=== PATIENT | male | born 1930 | race Caucasian/White ===

== ENCOUNTER 2018-09-18 11:03 | Inpatient (IN) | payer OTHER ==
[2018-09-18] MEDS ORDERED: ONDANSETRON 4 MG/2 ML VIAL IVPB ONE (11:42)
[2018-09-18 11:44] VITALS: BMI 24.7
--- NOTE | 2018-09-18 11:48 | PDOC ---
History of Present Illness - General Chief Complaint: Lightheaded Stated Complaint: DIZZINESS Time Seen by Provider: 09/18/18 11:08 History Source: Patient, Spouse Exam Limitations: No Limitations - History of Present Illness Initial Comments: 09/18/18 11:43 CHIEF COMPLAINT: Dizziness and unsteadiness with weakness since this morning HISTORY OF PRESENT ILLNESS: 88-year-old man with a history of coronary bypass, hypertension, atrial fibrillation on Xarelto presents with sudden onset of dizziness which he characterizes as a continuous sensation of weakness. Patient went out to his driveway and slowly went down to the ground. He has a minor superficial abrasion on his right knee, and he denies falling or hitting his head. There was no loss of consciousness. He is having a difficult time describing the dizziness. He said that things feel like they are moving, but not exactly spinning. He states that his vision is a little bit less than usual today, but no double vision or vision loss. Of note, patient has had severe right ear hearing loss over the last 3 weeks. He was seen by ENT and was started on prednisone on Thursday of this week. He has been taking 3 tablets twice a day and is scheduled to begin tapering soon. Patient denies diplopia, speech change, facial numbness, focal numbness or weakness in the extremities, but he does feel generally weak. REVIEW OF SYSTEMS: GENERAL/CONSTITUTIONAL: No fever or chills. Positive weakness. No weight change. HEAD, EYES, EARS, NOSE AND THROAT: Noted some decrease in vision today. No ear pain or discharge. No sore throat. Positive right ear hearing loss for 3 weeks. CARDIOVASCULAR: No chest pain or shortness of breath. RESPIRATORY: Positive chronic cough for 3 weeks with some mild recent improvement. No wheezing, or hemoptysis. GASTROINTESTINAL: Positive nausea, no vomiting, no diarrhea or constipation. No rectal bleeding. GENITOURINARY: No dysuria, frequency, or change in urination. MUSCULOSKELETAL: No joint or muscle swelling or pain. No neck or back pain. Minimal right lateral knee abrasion with no pain. SKIN AND BREASTS: No rash or easy bruising. NEUROLOGIC: No headache, no malik vertigo, no loss of consciousness, no loss of sensation. PSYCHIATRIC: No depression or anxiety. ENDOCRINE: No increased thirst. No abnormal weight change. HEMATOLOGIC/LYMPHATIC: No anemia, easy bleeding, or history of blood clots. ALLERGIC/IMMUNOLOGIC: No hives or skin allergy. No latex allergy. Past History - Past Medical History Allergies/Adverse Reactions: Allergies Allergy/AdvReac Type Severity Reaction Status Date / Time Penicillins Allergy Verified 09/18/18 11:31 Home Medications: Ambulatory Orders FA/Mv,Ca,Iron,Min/Lycopene/Lut [Centrum Tablet] 1 each PO DAILY tablet Amlodipine Besylate [Norvasc -] 10 mg PO DAILY 07/11/13 Doxazosin Mesylate 2 mg PO DAILY 07/11/13 Ezetimibe/Simvastatin [Vytorin 10-10 mg Tablet] 1 each PO HS 07/11/13 Losartan/Hydrochlorothiazide [Losartan-Hctz 100-25 mg Tab] 1 each PO DAILY 07/11 Prednisone 30 mg PO DAILY 09/18/18 Rivaroxaban [Xarelto -] 20 mg PO HS 09/18/18 Anemia: No Asthma: No Cancer: No Cardiac Disorders: Yes (ND, CAD, atrial fibrillation) CVA: No COPD: No CHF: No Dementia: No Diabetes: No GI Disorders: No Disorders: No HTN: Yes Hypercholesterolemia: No Liver Disease: No Seizures: No Thyroid Disease: No - Surgical History Cardiac Surgery: Yes (CABG) - Suicide/Smoking/Psychosocial Hx Smoking History: Never smoked Number of Cigarettes Smoked Daily: 0 Hx Alcohol Use: No Drug/Substance Use Hx: No Hx Substance Use Treatment: No *Physical Exam - Physical Exam Comments: 09/18/18 11:48 GENERAL: The patient is awake, alert, and fully oriented, in no acute distress. He is moderately hard of hearing. HEAD: Normal with no signs of trauma. EYES: Pupils equal, round and reactive to light, extraocular movements intact, sclera anicteric, conjunctiva clear. ENT: Ears normal, nares patent, oropharynx clear without exudates. Moist mucous membranes. Tympanic membranes normal bilaterally. NECK: Normal range of motion, supple without lymphadenopathy, JVD, or masses. No bony cervical spine tenderness. LUNGS: Breath sounds equal, clear to auscultation bilaterally. No wheezes, and no crackles. HEART: Rhythm is slow and irregularly irregular, normal S1 and S2 without murmur , rub or gallop. ABDOMEN: Soft, nontender, normoactive bowel sounds. No guarding, no rebound. No masses. EXTREMITIES: Normal range of motion, no edema. No clubbing or cyanosis. No cords, erythema, or tenderness. Minor superficial abrasion over the right lateral knee. Normal range of motion. No pain. NEURO: Mental status: The patient is oriented x3. Cranial nerves: Cranial nerves II through XII are intact. No facial droop. No facial numbness. Motor: The upper extremities are 5 over 5 in all muscle groups. The lower extremities are 5 over 5 in all muscle groups. Sensation: Sensation is intact to light touch throughout. Cerebellar: Lwhbly-[id number]-tirr is normal in both upper extremities. Heel-knee- marsh is normal in both lower extremities. There is a bilateral tremor. Reflexes: 2+ and symmetric in the upper and lower extremities. Babinski is downgoing bilaterally. Gait: Not tested. PSYCH: Normal mood, normal affect. SKIN: Warm, Dry, normal turgor, no rashes noted. Heart Score/ECG Review - ECG Impressions Comment:: 09/18/18 11:58 Twelve-lead EKG shows atrial fibrillation with a ventricular rate of 57 bpm. The QRS axis is 114 ms with incomplete left bundle-branch block. The axis is normal. There are mild lateral ST depressions in leads V5 and V6 with T-wave flattening in aVL. There is no old tracing for comparison. Impression: Atrial fibrillation with slow ventricular response. Incomplete left bundle branch block. Nonspecific lateral ST depressions. No old tracing for comparison. ED Treatment Course - LABORATORY CBC & Chemistry Diagram: 09/18/18 11:50 09/18/18 11:50 - RADIOLOGY Radiology Studies Ordered: Category Date Time Status HEAD CT WITHOUT CONTRAST [CT] Stat CT Scan 09/18/18 11:42 Ordered CHEST X-RAY PORTABLE* [RAD] Stat Radiology 09/18/18 11:42 Ordered Medical Decision Making - Medical Decision Making 09/18/18 13:23 88-year-old man with history of coronary artery bypass, atrial fibrillation, and hypertension. Patient presents with sudden onset of dizziness today. He is unable to further characterize the dizziness. He was unsteady walking and slowly went down on one knee in his driveway at home. He takes Xarelto for A fib. On examination, his temperature is 94.7. He denies fever or chills. His heart rate is slow, but he reported to me that his heart rate is always in the 50s. His neurological examination shows no focal deficits. Laboratory workup with no leukocytosis. Chemistries with mildly abnormal LFTs, unchanged from baseline. Potassium is low at 3.1. CT scan of the brain shows possible hydrocephalus. No stroke or hemorrhage. Impression: Elderly gentleman with nonspecific dizziness and difficulty walking. Differential diagnosis is broad. EKG with slow A. fib which is chronic, and with incomplete left bundle branch block, as well as lateral ST depressions. Initial troponin is negative and there is no chest pain. Further cardiac enzymes will need to be tested. Weakness may be from hypokalemia. Neuro exam without any focality. CTH without any signs of stroke. Hypothermia could be consistent with thyroid disease or sepsis, although sepsis appears highly unlikely. Lactate and blood cultures will be sent. TSH ordered. Urinalysis ordered. Urine culture ordered. Plan: Patient will be admitted for further evaluation. Admitting team is simply medical, Roxanne boudreaux, Rody Lewis attending. 09/18/18 14:16 *DC/Admit/Observation/Transfer Diagnosis at time of Disposition: Dizziness, Unsteady gait, Weakness - Discharge Dispostion Condition at time of disposition: Guarded Decision to Admit order: Yes - Referrals Referrals: Darrell Lopez MD [Primary Care Provider] - - Patient Instructions - Post Discharge Activity
[2018-09-18] MEDS ORDERED: ONDANSETRON 4 MG/2 ML VIAL ONE (12:16)
[2018-09-18 12:22] LABS: INR 1.37 (0.82-1.09); PROTHROMBIN TIME (PATIENT) 15.2 SEC (10.2-13.0)
[2018-09-18 12:27] LABS: ALBUMIN 3.9 g/dl (3.4-5.0); ALK PHOS 62 U/L (45-117); ANION GAP 11 MMOL/L (8-16); BILIRUBIN,TOTAL 1.5 mg/dl (0.2-1); BLOOD UREA NITROGEN 22 mg/dl (7-18); CALCIUM 9.3 mg/dl (8.5-10); CHLORIDE 99 mmol/L (98-107); CO2 24 mmol/L (21-32); CREATININE 0.6 mg/dl (0.55-1.3); GLUCOSE,RANDOM 143 mg/dl (74-106); POTASSIUM 3.1 mmol/L (3.5-5.1); SGOT/AST 40 U/L (15-37); SGPT/ALT 36 U/L (13-61); SODIUM 134 mmol/L (136-145); TOT PROT 6.9 g/dl (6.4-8.2)
[2018-09-18 12:34] LABS: BASO % 0.1 % (0-2.0); EOS % 0.1 % (0-4.5); HEMATOCRIT 40.8 % (35.4-49); HEMOGLOBIN 13.1 GM/dl (11.7-16.9); MCH 31.8 pg (25.7-33.7); MCHC 32.3 g/dl (32.0-35.9); MEAN CELL VOLUME 98.4 fl (80-96); MEAN PLT VOLUME 10.7 fl (7.5-11.1); MONO % 6.5 % (3.8-10.2); NEUT % 82.3 % (42.8-82.8); PLATELET COUNT 166 K/MM3 (134-434); RBC 4.14 M/mm3 (4.00-5.60); RDW 12.9 % (11.9-15.9); WHITE BLOOD COUNT 10.8 K/mm3 (4.0-10.8)
[2018-09-18] MEDS ORDERED: POTASSIUM CHLORIDE TABS 20 MEQ TABLET.ER (FP) PO ONE ×3 (13:28→17:15)
[2018-09-18] MEDS ORDERED: SODIUM CHLORIDE 1,000 ML IV SCH (13:30)
--- NOTE | 2018-09-18 14:46 | HP ---
CHIEF COMPLAINT: Dizziness, weakness PCP: Dr. Lopez; Dr. Hughes [place] HISTORY OF PRESENT ILLNESS: 88 year-old male with a PMH significant for HTN, CAD s/p CABG x 5v, atrial fibrillation on Xarelto, systolic dysfunction, and recent sudden right hearing loss x 3 weeks. Patient has had a loose cough productive of whitish sputum x 2 weeks. He has had 1-2 diarrheal episodes x 2 days. He slept poorly last night due to coughing. He woke up this morning, ate his usual robust breakfast and went to move his car in the driveway. When he got out of the car he felt dizzy and he fell to the ground. He did not hit his head, no LOC. EMS was activated. As patient was being wheeled on stretcher from driveway to ambulance he vomited. About three weeks ago he had a sudden and profound loss of hearing in his right ear. He went to see ENT Dr. Mccarthy earlier this week who started him on a course of prednisone. Patient denies diplopia, speech change, facial numbness , focal numbness or weakness in the extremities, but he does feel generally weak. He denies chest pain, palpitations, diaphoresis, lower extremity edema. He denies fever, sweats, chills. On Xarelto but denies any type of bleeding episodes, no hematuria, melena, hematochezia, hematemesis. Denies ER course was notable for: (1) T94.6; placed on Lesli hugger, improved to 97.2 (2) RR 26, afib @54bpm (3) K 3.1; Kdur 40meq x 1 Recent Travel: No PAST MEDICAL HISTORY: Hypertension Coronary artery disease Atrial fibrillation Systolic dysfunction Right hearing loss x 3 weeks PAST SURGICAL HISTORY: CABG x 5v Social History: Smoking: never Alcohol: no Drugs: no Family History: Allergies Penicillins Allergy (Verified 09/18/18 11:31) HOME MEDICATIONS: Home Medications Medication Instructions Recorded FA/Mv,Ca,Iron,Min/Lycopene/Lut 1 each PO DAILY tablet 09/24/12 [Centrum Tablet] Amlodipine Besylate [Norvasc -] 10 mg PO DAILY 07/11/13 Doxazosin Mesylate 2 mg PO DAILY 07/11/13 Ezetimibe/Simvastatin [Vytorin 1 each PO HS 07/11/13 10-10 mg Tablet] Losartan/Hydrochlorothiazide 1 each PO DAILY 07/11/13 [Losartan-Hctz 100-25 mg Tab] Prednisone 30 mg PO DAILY 09/18/18 Rivaroxaban [Xarelto -] 20 mg PO HS 09/18/18 REVIEW OF SYSTEMS CONSTITUTIONAL: +weakness Absent: fever, chills, diaphoresis, malaise, loss of appetite, weight change HEENT: Absent: rhinorrhea, nasal congestion, throat pain, throat swelling, difficulty swallowing, mouth swelling, ear pain, eye pain, visual changes CARDIOVASCULAR: Absent: chest pain, syncope, palpitations, irregular heart rate, lightheadedness , peripheral edema RESPIRATORY: +cough, SOB Absent: dyspnea with exertion, orthopnea, wheezing, stridor, hemoptysis GASTROINTESTINAL: +diarrhea Absent: abdominal pain, abdominal distension, nausea, vomiting, constipation, melena, hematochezia GENITOURINARY: Absent: dysuria, frequency, urgency, hesitancy, hematuria, flank pain, genital pain MUSCULOSKELETAL: Absent: myalgia, arthralgia, joint swelling, back pain, neck pain SKIN: Absent: rash, itching, pallor HEMATOLOGIC/IMMUNOLOGIC: Absent: easy bleeding, easy bruising, lymphadenopathy, frequent infections ENDOCRINE: Absent: unexplained weight gain, unexplained weight loss, heat intolerance, cold intolerance NEUROLOGIC: +dizziness Absent: headache, focal weakness or paresthesias, unsteady gait, seizure, mental status changes, bladder or bowel incontinence PSYCHIATRIC: Absent: anxiety, depression, suicidal or homicidal ideation, hallucinations. PHYSICAL EXAMINATION Vital Signs - 24 hr 09/18/18 09/18/18 09/18/18 11:06 11:50 12:45 Temperature 94.6 F L Pulse Rate 63 Pulse Rate [ 54 L 57 L Apical] Respiratory 19 26 H 18 Rate Blood Pressure 166/51 L Blood Pressure 146/90 145/90 [Right Arm] O2 Sat by Pulse 99 100 95 Oximetry (%) 09/18/18 13:45 Temperature 94.7 F L Pulse Rate Pulse Rate [ 68 Apical] Respiratory 26 H Rate Blood Pressure Blood Pressure 148/72 [Right Arm] O2 Sat by Pulse 100 Oximetry (%) GENERAL: Awake, alert, and fully oriented, in no acute distress. HEAD: Normal with no signs of trauma. EYES: Pupils equal, round and reactive to light, extraocular movements intact, sclera anicteric, conjunctiva clear. No lid lag. EARS, NOSE, THROAT: Ears normal, nares patent, oropharynx clear without exudates. Dry mucous membranes. NECK: Normal range of motion, supple without lymphadenopathy, JVD, or masses. LUNGS: Breath sounds equal, clear to auscultation bilaterally. No wheezes, and no crackles. Rapid shallow breathing. HEART: Irregular, S1 and S2 ABDOMEN: Soft, nontender, not distended UPPER EXTREMITIES: 2+ pulses, warm, well-perfused. No cyanosis. No clubbing. No peripheral edema. LOWER EXTREMITIES: 2+ pulses, warm, well-perfused. No calf tenderness. No peripheral edema. NEUROLOGICAL: Cranial nerves II-XII intact. Normal speech. PSYCHIATRIC: Cooperative. Good eye contact. Appropriate mood and affect. Laboratory Results - last 24 hr 09/18/18 09/18/18 09/18/18 11:50 11:50 11:50 WBC 10.8 RBC 4.14 Hgb 13.1 Hct 40.8 MCV 98.4 H MCH 31.8 MCHC 32.3 RDW 12.9 Plt Count 166 MPV 10.7 Absolute Neuts (auto) 8.9 Neutrophils % 82.3 D Lymphocytes % 11.0 D Monocytes % 6.5 Eosinophils % 0.1 D Basophils % 0.1 PT with INR 15.2 H INR 1.37 H PTT (Actin FS) Sodium 134 L Potassium 3.1 L Chloride 99 Carbon Dioxide 24 Anion Gap 11 BUN 22 H Creatinine 0.6 Creat Clearance w eGFR 127.45 Random Glucose 143 H Calcium 9.3 Total Bilirubin 1.5 H AST 40 H ALT 36 Alkaline Phosphatase 62 Troponin I Total Protein 6.9 Albumin 3.9 09/18/18 09/18/18 11:50 11:50 WBC RBC Hgb Hct MCV MCH MCHC RDW Plt Count MPV Absolute Neuts (auto) Neutrophils % Lymphocytes % Monocytes % Eosinophils % Basophils % PT with INR INR PTT (Actin FS) 21.7 L Sodium Potassium Chloride Carbon Dioxide Anion Gap BUN Creatinine Creat Clearance w eGFR Random Glucose Calcium Total Bilirubin AST ALT Alkaline Phosphatase Troponin I < 0.03 Total Protein Albumin ASSESSMENT/PLAN: 88 year-old male with a PMH significant for HTN, CAD s/p CABG x 5v, systolic dysfunction, atrial fibrillation on Xarelto, and recent severe right hearing loss x 3 weeks. Placed on observation for episode of dizziness, hypothermia, Dizziness leading to fall --CT head: moderate to marked ventricular dilitation with the lateral third ventricles, more dilated than the fourth; NPH in differential; no mass lesion or gross infarct --US carotids --neuro consult Acute hearing loss right ear --seen and evaluated by ENT Dr. Mccarthy earlier this week, diagnosis unclear from history given; started on prednisone 30mg BID and taper scheduled to start on 09/19; will start taper --need to reach out to Dr. Mccarthy --neuro consult; possible MRI --tapering steroids Hypothermia Lactic acidosis Tachypnea --temp has normalized --TSH wnl --possible infectious etiology: cough x 2 weeks, diarrhea x several days, CXR clear; no leukocytosis; consider CT chest in am --lactic acidosis: hold lasix, IV fluids, repeat x 6 hours --ABG pending --blood, urine, stool cultures pending --start levofloxacin 750mg daily Systolic dysfunction --Echo from 2013: LV low normal, mild septal wall hypokinesis --appears dry, hold home HCTZ --echo on Thursday --cardiology consult Atrial fibrillation with slow ventricular response --successive ECGs show afib with rate 57-->62bpm; only previous ECG from 2013 showed afib @47bpm --continue amlodipine --on Xarelto --follows with Dr. Barrington Hughes, [facility] Coronary artery disease --continue amlodipine, Lipitor, Zetia Hypertension --continue losartan, amlodipine BPH --continue doxazosin Visit type - Emergency Visit Emergency Visit: Yes ED Registration Date: 09/19/18 Care time: The patient presented to the Emergency Department on the above date and was hospitalized for further evaluation of their emergent condition. - New Patient This patient is new to me today: Yes Date on this admission: 09/20/18 - Critical Care Critical Care patient: No
[2018-09-18] MEDS ORDERED: SODIUM CHLORIDE 500 ML IV STA (17:22)
[2018-09-18 17:37] LABS: AMORP PHOS 2+ /hpf (NONE SEEN)
[2018-09-18 19:19] LABS: ARTERIAL BLD GAS O2 SATURATION 98.8 % (95-98); ARTERIAL BLOOD GAS BASE EXCESS 4.2 meq/l (-2-2); ARTERIAL BLOOD GAS PCO2 27.6 mmHg (35-45); ARTERIAL BLOOD GAS PO2 118 mmHg (80-105); ARTERIAL BLOOD GAS pH 7.57 (7.35-7.45)
[2018-09-18] MEDS: predniSONE 10 MG TABLET (UD) PO SCH (20:13)
[2018-09-18] MEDS: ATORVASTATIN CA 10 MG TABLET (FP) PO SCH (21:24)
[2018-09-18] MEDS: EZETIMIBE 10 MG TABLET (FP) PO SCH (21:24)
[2018-09-18] MEDS: RIVAROXABAN 20 MG TABLET PO SCH (21:24)
--- NOTE | 2018-09-19 08:54 | CON.CARD ---
Consult Consult Specialty:: cardiology Reason for Consultation:: bradycardia; near-syncope - History of Present Illness Chief Complaint: PT A&Ox3; when he walks, he has lately (past two weeks) felt "my equilibrium is off". No palpitations, dizziness, chest pain. History of Present Illness: 88-year-old white man ([place] descent) with a history of coronary bypass 2003 ( denies hx [place]), hypertension, atrial fibrillation on Xarelto, borderline reduced LVEF on 2013 ECHO, presents with sudden onset of dizziness which he characterizes as a continuous sensation of weakness. Patient went out to his driveway and slowly went down to the ground. He has a minor superficial abrasion on his right knee, and he denies falling or hitting his head. There was no loss of consciousness. He is having a difficult time describing the dizziness. He said that things feel like they are moving, but not exactly spinning. He states that his vision is a little bit less than usual today, but no double vision or vision loss. Of note, patient has had severe right ear hearing loss over the last 3 weeks. He was seen by ENT and was started on prednisone on Thursday of this week. He has been taking 3 tablets twice a day and is scheduled to begin tapering soon. - History Source History Provided By: Patient, Family Member ( (by telephone)), Medical Record Limitations to Obtaining History: No Limitations - Past Medical History Cardio/Vascular: Yes: AFIB, CAD, CHF, HTN, Hyperlipdemia. No: [place] - Past Surgical History Past Surgical History: Yes: CABG - Alcohol/Substance Use Hx Alcohol Use: No History of Substance Use: reports: None - Smoking History Smoking history: Never smoked Aproximately how many cigarettes per day: 0 - Social History Usual Living Arrangement: With Spouse History of Recent Travel: No Home Medications - Allergies Allergies/Adverse Reactions: Allergies Allergy/AdvReac Type Severity Reaction Status Date / Time Penicillins Allergy Verified 09/18/18 11:31 - Home Medications Home Medications: Ambulatory Orders FA/Mv,Ca,Iron,Min/Lycopene/Lut [Centrum Tablet] 1 each PO DAILY tablet Amlodipine Besylate [Norvasc -] 10 mg PO DAILY 07/11/13 Doxazosin Mesylate 2 mg PO DAILY 07/11/13 Ezetimibe/Simvastatin [Vytorin 10-10 mg Tablet] 1 each PO HS 07/11/13 Losartan/Hydrochlorothiazide [Losartan-Hctz 100-25 mg Tab] 1 each PO DAILY 07/11 Prednisone 30 mg PO DAILY 09/18/18 Rivaroxaban [Xarelto -] 20 mg PO HS 09/18/18 Family Disease History - Family Disease History Family History: Denies Review of Systems - Review of Systems Constitutional: reports: No Symptoms Eyes: reports: No Symptoms HENT: reports: No Symptoms Neck: reports: No Symptoms Cardiovascular: reports: No Symptoms Respiratory: reports: No Symptoms Gastrointestinal: reports: No Symptoms Genitourinary: reports: No Symptoms Breasts: reports: No Symptoms Reported Musculoskeletal: reports: Muscle Weakness Integumentary: reports: No Symptoms Neurological: reports: Dizziness, Weakness Endocrine: reports: No Symptoms Hematology/Lymphatic: reports: No Symptoms Psychiatric: reports: No Symptoms - Risk Factors Known Risk Factors: Yes: Age, Gender, Hypercholesterolemia, Hypertension, Other (CAD/CABG) Vital Signs: Vital Signs Temperature 97.8 F 09/19/18 06:00 Pulse Rate 54 L 09/19/18 06:00 Respiratory Rate 18 09/19/18 06:00 Blood Pressure 145/65 09/19/18 06:00 O2 Sat by Pulse Oximetry (%) 98 09/19/18 06:00 Constitutional: Yes: Calm Eyes: Yes: WNL HENT: Yes: WNL, Other (hard of hearing) Neck: Yes: WNL Respiratory: Yes: WNL Gastrointestinal: Yes: WNL Renal/: Yes: WNL Cardiovascular: Yes: Pulse Irregular JVD: No Carotid Bruit: No PMI: Non-Displaced Heart Sounds: Yes: S1 (varies in intensity), S2 Murmur: Yes: Systolic Murmur, Grade 1 Musculoskeletal: Yes: Muscle Weakness Extremities: Yes: Cool Edema: No Peripheral Pulses WNL: Yes Integumentary: Yes: WNL Neurological: Yes: Alert, Oriented, Weakness Psychiatric: Yes: WNL - Other Data Labs, Other Data: CBC, BMP 09/18/18 11:50 09/18/18 11:50 INR, PTT INR 1.37 (0.82-1.09) H 09/18/18 11:50 Troponin, BNP 09/18/18 09/18/18 11:50 11:50 Troponin I < 0.03 B-Natriuretic Peptide 996.6 H Troponin, BNP 09/18/18 09/18/18 11:50 11:50 Troponin I < 0.03 B-Natriuretic Peptide 996.6 H Abnormal Lab Results 09/19/18 06:15 RBC 3.71 L Hgb 11.5 L MCV 98.3 H MCHC 31.5 L Plt Count 133 L Neutrophils % 84.7 H Imaging - Results Chest X-ray: Image Reviewed (enlarged heart) EKG: Image Reviewed (AF with slow VR) Other: Image Reviewed (telemetry: AF; HR increases to 80s with exercise ( walking in hallway)) Problem List - Problems (1) Near syncope Assessment/Plan: Orthostatic vital sign checks. Maintain hydration. ECHO for LVEF (low normal, with septal hypokinesis several years ago), chamber sizes, regional wall motion, valve status. Caroid artery US. Pt had been on steroids for right ear problem when the near-syncope occurred. His says he vomited several times shortly after the incident.Noted hypokalemic. Code(s): R55 - SYNCOPE AND COLLAPSE (2) Atrial fibrillation with slow ventricular response Assessment/Plan: HR noted in [id number] overnight. He was asked to walk up and down the hallway (using walker, and with his RN walking with him), and did so for about 5 minutes; HR increaed to high 80s bpm. ECHO several years ago done at this hospital showed low-normal LVEF, septal hypokinesis. Plan: Continue rivaroxaban for anticoagulation. Pt is not on an AV conduction joel, likely due to slow ventricular response. If ECHo shows reduction in LVEF and/or LV dilatation, he will need to be considered for a beta joel, e.g. metoprolol ER or carvedilol. He says that a pacemaker was discussed with him a few years ago, but was not thought necessary at that time. He reports having had an ECHO and other cardiac workup done as outpatient a few weeks ago, and will have results brought in. An ECHO is also scheduled for tomorrow here. Addendum: pt's family brought papers of recent labs today; no ECHO or stress test results were among them. Code(s): I48.91 - UNSPECIFIED ATRIAL FIBRILLATION (3) HTN (hypertension) Code(s): I10 - ESSENTIAL (PRIMARY) HYPERTENSION (4) Hyperlipidemia Assessment/Plan: on statin and Zetia. Code(s): E78.5 - HYPERLIPIDEMIA, UNSPECIFIED (5) Dizziness Code(s): R42 - DIZZINESS AND GIDDINESS (6) Hypokalemia Assessment/Plan: replete K+, and keep 4.0-4.5. Code(s): E87.6 - HYPOKALEMIA (7) BPH (benign prostatic hyperplasia) Assessment/Plan: On Cardura Code(s): N40.0 - BENIGN PROSTATIC HYPERPLASIA WITHOUT LOWER URINRY TRACT SYMP
[2018-09-19 09:19] LABS: BASO % 0.1 % (0-2.0); HEMATOCRIT 36.5 % (35.4-49); HEMOGLOBIN 11.5 GM/dl (11.7-16.9); LYMPH % 8.3 % (8-40); MCH 30.9 pg (25.7-33.7); MCHC 31.5 g/dl (32.0-35.9); MEAN CELL VOLUME 98.3 fl (80-96); MEAN PLT VOLUME 10.9 fl (7.5-11.1); MONO % 6.9 % (3.8-10.2); NEUT % 84.7 % (42.8-82.8); PLATELET COUNT 133 K/MM3 (134-434); RBC 3.71 M/mm3 (4.00-5.60); RDW 12.7 % (11.9-15.9); WHITE BLOOD COUNT 10.1 K/mm3 (4.0-10.8)
[2018-09-19 09:22] LABS: ANION GAP 8 MMOL/L (8-16); BLOOD UREA NITROGEN 17 mg/dl (7-18); CALCIUM 8.6 mg/dl (8.5-10); CHLORIDE 102 mmol/L (98-107); CO2 26 mmol/L (21-32); CREATININE 0.6 mg/dl (0.55-1.3); GLUCOSE,RANDOM 104 mg/dl (74-106); MAGNESIUM 1.9 mg/dL (1.8-2.4); PHOSPHOROUS 2.9 mg/dl (2.5-4.9); POTASSIUM 3.9 mmol/L (3.5-5.1); SODIUM 136 mmol/L (136-145)
[2018-09-19] MEDS ORDERED: predniSONE 10 MG TABLET (UD) PO SCH (10:00)
[2018-09-19] MEDS ORDERED: PATIENT'S OWN MEDICATION (NON-FORMULARY) (Losartan/Hydrochlorothiazide [Losartan-Hctz 100- PO SCH (10:00)
[2018-09-19] MEDS ORDERED: LOSARTAN 50MG/HCTZ 12.5MG 1 TAB (FP) PO SCH (10:00)
[2018-09-19] MEDS: LOSARTAN POTASSIUM 50 MG TABLET (FP) PO SCH (10:22)
[2018-09-19] MEDS: DOXAZOSIN MESYLATE 2 MG TABLET (FP) PO SCH (10:22)
[2018-09-19] MEDS: predniSONE 10 MG TABLET (UD) PO SCH ×2 (10:23→21:11)
[2018-09-19] MEDS: amLODIPine BESYLATE 10 MG TABLET (FP) PO SCH (10:26)
--- NOTE | 2018-09-19 10:56 | PN ---
Physical Exam: SUBJECTIVE: Patient seen and examined, pt has mild tremors in hands which patient and reports is not new, denies dizziness, headache family at bedside, requesting results, consulting Jay to speak to sonPhil OBJECTIVE: Vital Signs Period Temp Pulse Resp BP Sys/Lockhart Pulse Ox Last 24 Hr 94.6 F-98.3 F 45-68 16-26 133-166/49-90 95-100 GENERAL: The patient is awake, alert, and fully oriented, in no acute distress. HEAD: Normal with no signs of trauma. EYES: PERRL, extraocular movements intact, sclera anicteric, conjunctiva clear. No ptosis. ENT: Ears normal, nares patent, oropharynx clear without exudates, moist mucous membranes. NECK: Trachea midline, full range of motion, supple. LUNGS: Breath sounds equal, clear to auscultation bilaterally, no wheezes, no crackles, no accessory muscle use. HEART: Regular rate and rhythm, S1, S2 without murmur, rub or gallop. ABDOMEN: Soft, nontender, nondistended, normoactive bowel sounds, no guarding, no rebound, no hepatosplenomegaly, no masses. EXTREMITIES: 2+ pulses, warm, well-perfused, no edema. NEUROLOGICAL: Cranial nerves II through XII grossly intact. Normal speech, gait not observed. PSYCH: Normal mood, normal affect. SKIN: Warm, dry, normal turgor, no rashes or lesions noted Laboratory Results - last 24 hr 09/18/18 09/18/18 09/18/18 11:50 11:50 11:50 WBC 10.8 RBC 4.14 Hgb 13.1 Hct 40.8 MCV 98.4 H MCH 31.8 MCHC 32.3 RDW 12.9 Plt Count 166 MPV 10.7 Absolute Neuts (auto) 8.9 Neutrophils % 82.3 D Lymphocytes % 11.0 D Monocytes % 6.5 Eosinophils % 0.1 D Basophils % 0.1 PT with INR 15.2 H INR 1.37 H PTT (Actin FS) Anticoagulation Therapy Puncture Site ABG pH ABG pCO2 at Pt Temp ABG pO2 at Pt Temp ABG HCO3 ABG O2 Sat (Measured) ABG O2 Content ABG Base Excess Bhavik Test O2 Delivery Device Oxygen Flow Rate Vent Mode Vent Rate Mechanical Rate Pressure Support Vent Sodium 134 L Potassium 3.1 L Chloride 99 Carbon Dioxide 24 Anion Gap 11 BUN 22 H Creatinine 0.6 Creat Clearance w eGFR 127.45 Random Glucose 143 H Lactic Acid Calcium 9.3 Phosphorus Magnesium Total Bilirubin 1.5 H AST 40 H ALT 36 Alkaline Phosphatase 62 Troponin I B-Natriuretic Peptide Total Protein 6.9 Albumin 3.9 TSH Urine Color Urine Appearance Urine pH Urine Protein Urine Glucose (UA) Urine Ketones Urine Blood Urine Nitrite Urine Bilirubin Urine Urobilinogen Ur Leukocyte Esterase Urine RBC Urine WBC Amorphous Phosphates 09/18/18 09/18/18 09/18/18 11:50 11:50 11:50 WBC RBC Hgb Hct MCV MCH MCHC RDW Plt Count MPV Absolute Neuts (auto) Neutrophils % Lymphocytes % Monocytes % Eosinophils % Basophils % PT with INR INR PTT (Actin FS) 21.7 L Anticoagulation Therapy Puncture Site ABG pH ABG pCO2 at Pt Temp ABG pO2 at Pt Temp ABG HCO3 ABG O2 Sat (Measured) ABG O2 Content ABG Base Excess Bhavik Test O2 Delivery Device Oxygen Flow Rate Vent Mode Vent Rate Mechanical Rate Pressure Support Vent Sodium Potassium Chloride Carbon Dioxide Anion Gap BUN Creatinine Creat Clearance w eGFR Random Glucose Lactic Acid Calcium Phosphorus Magnesium Total Bilirubin AST ALT Alkaline Phosphatase Troponin I < 0.03 B-Natriuretic Peptide 996.6 H Total Protein Albumin TSH Urine Color Urine Appearance Urine pH Urine Protein Urine Glucose (UA) Urine Ketones Urine Blood Urine Nitrite Urine Bilirubin Urine Urobilinogen Ur Leukocyte Esterase Urine RBC Urine WBC Amorphous Phosphates 09/18/18 09/18/18 09/18/18 11:50 14:15 14:15 WBC RBC Hgb Hct MCV MCH MCHC RDW Plt Count MPV Absolute Neuts (auto) Neutrophils % Lymphocytes % Monocytes % Eosinophils % Basophils % PT with INR INR PTT (Actin FS) Anticoagulation Therapy Puncture Site ABG pH ABG pCO2 at Pt Temp ABG pO2 at Pt Temp ABG HCO3 ABG O2 Sat (Measured) ABG O2 Content ABG Base Excess Bhavik Test O2 Delivery Device Oxygen Flow Rate Vent Mode Vent Rate Mechanical Rate Pressure Support Vent Sodium Potassium Chloride Carbon Dioxide Anion Gap BUN Creatinine Creat Clearance w eGFR Random Glucose Lactic Acid 2.1 H Calcium Phosphorus Magnesium 2.1 Total Bilirubin AST ALT Alkaline Phosphatase Troponin I B-Natriuretic Peptide Total Protein Albumin TSH 0.75 Urine Color Urine Appearance Urine pH Urine Protein Urine Glucose (UA) Urine Ketones Urine Blood Urine Nitrite Urine Bilirubin Urine Urobilinogen Ur Leukocyte Esterase Urine RBC Urine WBC Amorphous Phosphates 09/18/18 09/18/18 09/19/18 16:30 18:00 06:15 WBC 10.1 RBC 3.71 L Hgb 11.5 L Hct 36.5 MCV 98.3 H MCH 30.9 MCHC 31.5 L RDW 12.7 Plt Count 133 L MPV 10.9 Absolute Neuts (auto) 8.6 Neutrophils % 84.7 H Lymphocytes % 8.3 D Monocytes % 6.9 Eosinophils % 0.0 D Basophils % 0.1 PT with INR INR PTT (Actin FS) Anticoagulation Therapy No Result Required. Puncture Site No Result Required. ABG pH 7.57 H ABG pCO2 at Pt Temp 27.6 L ABG pO2 at Pt Temp 118 H ABG HCO3 25.3 ABG O2 Sat (Measured) 98.8 H ABG O2 Content 18.7 ABG Base Excess 4.2 H Bhavik Test No Result Required. O2 Delivery Device No Result Required. Oxygen Flow Rate No Result Required. Vent Mode No Result Required. Vent Rate No Result Required. Mechanical Rate No Result Required. Pressure Support Vent No Result Required. Sodium Potassium Chloride Carbon Dioxide Anion Gap BUN Creatinine Creat Clearance w eGFR Random Glucose Lactic Acid Calcium Phosphorus Magnesium Total Bilirubin AST ALT Alkaline Phosphatase Troponin I B-Natriuretic Peptide Total Protein Albumin TSH Urine Color Yellow Urine Appearance Clear Urine pH 8.5 H Urine Protein 2+ H Urine Glucose (UA) Negative Urine Ketones Negative Urine Blood 3+ H Urine Nitrite Negative Urine Bilirubin Negative Urine Urobilinogen 0.2 Ur Leukocyte Esterase Negative Urine RBC 2-5 Urine WBC 0-2 Amorphous Phosphates 2+ 09/19/18 06:15 WBC RBC Hgb Hct MCV MCH MCHC RDW Plt Count MPV Absolute Neuts (auto) Neutrophils % Lymphocytes % Monocytes % Eosinophils % Basophils % PT with INR INR PTT (Actin FS) Anticoagulation Therapy Puncture Site ABG pH ABG pCO2 at Pt Temp ABG pO2 at Pt Temp ABG HCO3 ABG O2 Sat (Measured) ABG O2 Content ABG Base Excess Bhavik Test O2 Delivery Device Oxygen Flow Rate Vent Mode Vent Rate Mechanical Rate Pressure Support Vent Sodium 136 Potassium 3.9 Chloride 102 Carbon Dioxide 26 Anion Gap 8 BUN 17 Creatinine 0.6 Creat Clearance w eGFR 127.45 Random Glucose 104 Lactic Acid Calcium 8.6 Phosphorus 2.9 Magnesium 1.9 Total Bilirubin AST ALT Alkaline Phosphatase Troponin I B-Natriuretic Peptide Total Protein Albumin TSH Urine Color Urine Appearance Urine pH Urine Protein Urine Glucose (UA) Urine Ketones Urine Blood Urine Nitrite Urine Bilirubin Urine Urobilinogen Ur Leukocyte Esterase Urine RBC Urine WBC Amorphous Phosphates Active Medications Generic Name Dose Route Start Last Admin Trade Name Drewq PRN Reason Stop Dose Admin Amlodipine Besylate 10 mg 09/19/18 10:00 09/19/18 10:26 Norvasc - PO 10 mg DAILY ELLEN Administration Atorvastatin Calcium 10 mg 09/18/18 22:00 09/18/18 21:24 Lipitor - PO 10 mg HS ELLEN Administration Doxazosin Mesylate 2 mg 09/19/18 10:00 09/19/18 10:22 Cardura - PO 2 mg DAILY ELLEN Administration Ezetimibe 10 mg 09/18/18 22:00 09/18/18 21:24 Zetia - PO 10 mg HS ELLEN Administration Sodium Chloride 1,000 mls @ 150 mls/hr 09/18/18 13:30 09/18/18 14:15 Normal Saline - IV 150 mls/hr ASDIR ELLEN Administration Levofloxacin 750 mg in 150 mls @ 100 mls/hr 09/18/18 19:00 09/19/18 10:23 Levaquin 750 Mg Premixed Ivpb - IVPB 100 mls/hr DAILY ELLEN Administration Protocol Losartan Potassium 50 mg 09/19/18 10:00 09/19/18 10:22 Cozaar - PO 50 mg DAILY ELLEN Administration Prednisone 30 mg 09/18/18 20:00 09/19/18 10:23 Deltasone - PO 10 mg BID ELLEN Administration Rivaroxaban 20 mg 09/18/18 22:00 09/18/18 21:24 Xarelto - PO 20 mg HS ELLEN Administration ASSESSMENT/PLAN: 88 year-old male with a PMH significant for HTN, CAD s/p CABG x 5v, systolic dysfunction, atrial fibrillation on Xarelto, and recent severe right hearing loss x 3 weeks. Placed on observation for episode of dizziness, hypothermia, #Dizziness leading to fall --CT head: moderate to marked ventricular dilitation with the lateral third ventricles, more dilated than the fourth; NPH in differential; no mass lesion or gross infarct --US carotids --neuro consult --Fall precautions #Acute hearing loss right ear --seen and evaluated by ENT Dr. Mccarthy on 09/14 ENT records reviewed:- sensoryneural hearing loss started on prednisone 30mg BID x 7 days, 20mg BIDx 2 days, 10 mg BID x 2 days, 10mg daily x 2 days -- call Dr. Mccarthy [facility], -labs ordered by ENT JADEN, Jana, --neuro consult; possible MRI --tapering steroids #Hypothermia-resolved #Lactic acidosis #Tachypnea --temp has normalized --TSH wnl --possible infectious etiology: cough x 2 weeks, diarrhea x several days, CXR clear; no leukocytosis; consider CT chest in am --lactic acidosis: hold lasix, IV fluids, repeat x 6 hours --ABG --blood, urine, stool cultures -uncollected, --c/w levofloxacin 750mg daily #Hypokalemia-resolved --repleted, today 3.9 --HCTZ on hold #Systolic dysfunction --Echo from 2013: LV low normal, mild septal wall hypokinesis --appears dry, hold home HCTZ --echo on Thursday --cardiology note appreciated #Atrial fibrillation with slow ventricular response --successive ECGs show afib with rate 57-->62bpm; only previous ECG from 2013 showed afib @47bpm --continue amlodipine --on Xarelto [facility] #Coronary artery disease --continue amlodipine, Lipitor, Zetia #Hypertension --continue losartan, amlodipine #BPH --continue doxazosin Visit type - Emergency Visit Emergency Visit: Yes ED Registration Date: 09/18/18 Care time: The patient presented to the Emergency Department on the above date and was hospitalized for further evaluation of their emergent condition. - New Patient This patient is new to me today: Yes Date on this admission: 09/19/18 - Critical Care Critical Care patient: No
--- NOTE | 2018-09-19 13:32 | CON.NEURO ---
Consult Consult Specialty:: Татьяна Referred by:: ER - History of Present Illness History of Present Illness: 88 year sold man woth [facility] CAD OA A Fib On AC patient was at his usual status of health until yesterday when he felt dizzy patient felt patient with no true trauma to his head. No report of any recent travel patient lives at home with his according to the patient he fell backward patient denies any seizure-like activity chest pain palpitation patient knows that his blood pressure is low. I evaluated the patient on the medical surgical floor. Since admission patient with no seizure activity noted chest pain patient is running bradycardiac sinus. - History Source History Provided By: Patient, Medical Record Limitations to Obtaining History: No Limitations - Alcohol/Substance Use Hx Alcohol Use: No - Smoking History Smoking history: Never smoked Aproximately how many cigarettes per day: 0 Home Medications - Allergies Allergies/Adverse Reactions: Allergies Allergy/AdvReac Type Severity Reaction Status Date / Time Penicillins Allergy Verified 09/18/18 11:31 - Home Medications Home Medications: Ambulatory Orders FA/Mv,Ca,Iron,Min/Lycopene/Lut [Centrum Tablet] 1 each PO DAILY tablet Amlodipine Besylate [Norvasc -] 10 mg PO DAILY 07/11/13 Doxazosin Mesylate 2 mg PO DAILY 07/11/13 Ezetimibe/Simvastatin [Vytorin 10-10 mg Tablet] 1 each PO HS 07/11/13 Losartan/Hydrochlorothiazide [Losartan-Hctz 100-25 mg Tab] 1 each PO DAILY 07/11 Prednisone 30 mg PO DAILY 09/18/18 Rivaroxaban [Xarelto -] 20 mg PO HS 09/18/18 Family Disease History - Family Disease History Family History: Denies (cva) Review of Systems - Review of Systems Constitutional: reports: No Symptoms Eyes: reports: No Symptoms HENT: reports: No Symptoms Neck: reports: No Symptoms Neurological: reports: Headache, Incoordination, Numbness Physical Exam-Neuro Vital Signs: Vital Signs Temperature 98.2 F 09/19/18 10:39 Pulse Rate 62 09/19/18 10:39 Respiratory Rate 22 H 09/19/18 10:39 Blood Pressure 136/64 09/19/18 10:39 O2 Sat by Pulse Oximetry (%) 98 09/19/18 06:00 Constitutional: Yes: Well Nourished Neck: Yes: WNL Labs: CBC, BMP 09/19/18 06:15 09/19/18 06:15 INR, PTT INR 1.37 (0.82-1.09) H 09/18/18 11:50 - Neuro Exam Level Of Consciousness: Yes: Oriented to Person, Oriented to Place, Oriented to Time Eyes: Yes: PERRLA Speech: WNL Dominant Hand: Right Cranial Nerves II-XII Intact: Yes Gag: Present Response to light touch: Abnormal Response to pain prick: Abnormal Response to temperature: Abnormal Response to vibration: Abnormal Movement Disorders: Tremors Motor Strength: 4/5: Left Arm, Right Arm, Left Leg, Right Leg Imaging - Results Cat Scan: Image Reviewed Problem List - Problems (1) Dizziness Assessment/Plan: questionable syncope associated with cardiac arrhythmia Questionable TIA with posterior circulation ischemia. 1. Neuro checks every 1 hour. 2. Holter monitor. 3. Follow up with cardiology questionable need for pacing. 4. Continue and coagulation the same. 5. Fall precautions. 6. Check orthostasis every shift. 7. Carotid Doppler Code(s): R42 - DIZZINESS AND GIDDINESS
--- NOTE | 2018-09-19 17:59 | EKG ---
Test Reason : Blood Pressure : / mmHG Vent. Rate : 057 BPM Atrial Rate : 068 BPM P-R Int : 000 ms QRS Dur : 114 ms QT Int : 454 ms P-R-T Axes : 000 -15 037 degrees QTc Int : 441 ms ATRIAL FIBRILLATION WITH SLOW VENTRICULAR RESPONSE WITH PREMATURE VENTRICULAR OR ABERRANTLY CONDUCTED COMPLEXES INCOMPLETE LEFT BUNDLE BRANCH BLOCK ABNORMAL ECG NO PREVIOUS ECGS AVAILABLE Confirmed by MAXIMUS CARBAJAL MD ([id number]) on 09/19/2018 5:58:57 PM Referred By: АННА JEAN Confirmed By:MAXIMUS CARBAJAL MD
--- NOTE | 2018-09-19 18:03 | EKG ---
Test Reason : Blood Pressure : / mmHG Vent. Rate : 062 BPM Atrial Rate : 063 BPM P-R Int : 000 ms QRS Dur : 110 ms QT Int : 446 ms P-R-T Axes : 000 -21 061 degrees QTc Int : 452 ms ATRIAL FIBRILLATION WITH SLOW VENTRICULAR RESPONSE LOW VOLTAGE QRS CANNOT RULE OUT ANTERIOR INFARCT , AGE UNDETERMINED ABNORMAL ECG WHEN COMPARED WITH ECG OF 18-SEP-2018 11:14, MINIMAL CRITERIA FOR ANTERIOR INFARCT ARE NOW PRESENT NONSPECIFIC T WAVE ABNORMALITY NOW EVIDENT IN ANTERIOR LEADS Confirmed by MAXIMUS CARBAJAL MD ([id number]) on 09/19/2018 6:03:18 PM Referred By: CHEPE PASCUAL Confirmed By:MAXIMUS CARBAJAL MD
[2018-09-19] MEDS: EZETIMIBE 10 MG TABLET (FP) PO SCH (21:12)
[2018-09-19] MEDS: RIVAROXABAN 20 MG TABLET PO SCH (21:12)
[2018-09-19] MEDS: ATORVASTATIN CA 10 MG TABLET (FP) PO SCH (21:12)
--- NOTE | 2018-09-20 05:49 | PN ---
Physical Exam: SUBJECTIVE: Patient seen and examined. Patient voices no complaints. Nurses report patient very shaky walking. OBJECTIVE: Vital Signs Period Temp Pulse Resp BP Sys/Lockhart Pulse Ox Last 24 Hr 97.7 F-98.2 F 46-71 18-22 130-145/48-66 98-100 GENERAL: Awake, alert, and fully oriented, in no acute distress. LUNGS: Breath sounds equal, clear to auscultation bilaterally. No wheezes, and no crackles. Rapid shallow breathing. HEART: Irregular, S1 and S2 ABDOMEN: Soft, nontender, not distended UPPER EXTREMITIES: 2+ pulses, warm, well-perfused. No cyanosis. No clubbing. No peripheral edema. LOWER EXTREMITIES: 2+ pulses, warm, well-perfused. No calf tenderness. No peripheral edema. NEUROLOGICAL: Cranial nerves II-XII intact. Normal speech. Tremulous. Laboratory Results - last 24 hr 09/19/18 09/19/18 06:15 06:15 WBC 10.1 RBC 3.71 L Hgb 11.5 L Hct 36.5 MCV 98.3 H MCH 30.9 MCHC 31.5 L RDW 12.7 Plt Count 133 L MPV 10.9 Absolute Neuts (auto) 8.6 Neutrophils % 84.7 H Lymphocytes % 8.3 D Monocytes % 6.9 Eosinophils % 0.0 D Basophils % 0.1 Sodium 136 Potassium 3.9 Chloride 102 Carbon Dioxide 26 Anion Gap 8 BUN 17 Creatinine 0.6 Creat Clearance w eGFR 127.45 Random Glucose 104 Calcium 8.6 Phosphorus 2.9 Magnesium 1.9 Active Medications Generic Name Dose Route Start Last Admin Trade Name Freq PRN Reason Stop Dose Admin Amlodipine Besylate 10 mg 09/19/18 10:00 09/19/18 10:26 Norvasc - PO 10 mg DAILY ELLEN Administration Atorvastatin Calcium 10 mg 09/18/18 22:00 09/19/18 21:12 Lipitor - PO 10 mg HS ELLEN Administration Doxazosin Mesylate 2 mg 09/19/18 10:00 09/19/18 10:22 Cardura - PO 2 mg DAILY ELLEN Administration Ezetimibe 10 mg 09/18/18 22:00 09/19/18 21:12 Zetia - PO 10 mg HS ELLEN Administration Levofloxacin 750 mg in 150 mls @ 100 mls/hr 09/18/18 19:00 09/19/18 10:23 Levaquin 750 Mg Premixed Ivpb - IVPB 100 mls/hr DAILY ELLEN Administration Protocol Losartan Potassium 50 mg 09/19/18 10:00 09/19/18 10:22 Cozaar - PO 50 mg DAILY ELLEN Administration Prednisone 30 mg 09/18/18 20:00 09/19/18 21:11 Deltasone - PO 30 mg BID ELLEN Administration Rivaroxaban 20 mg 09/18/18 22:00 09/19/18 21:12 Xarelto - PO 20 mg HS ELLEN Administration ASSESSMENT/PLAN: 88 year-old male with a PMH significant for HTN, CAD s/p CABG x 5v, systolic dysfunction, atrial fibrillation on Xarelto, and recent severe right hearing loss x 3 weeks. Admitted for dizziness and unsteady gait. 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 Barrington Hughes, [facility] --seen and evaluated today by Dr. Torrez Acute hearing loss right ear --seen and evaluated by ENT Dr. Mccarthy last week, records being faxed --tapering prednisone Systolic dysfunction --Echo 2013: LV low normal, mild septal wall hypokinesis --09/21 Echo: LV normal, EF 60-65%; RV normal; BLAE; moderate to severe MR; moderate to severe TR; pHTN; mild AI; moderate PI Coronary artery disease --continue amlodipine, Lipitor, Zetia Hypertension --continue losartan, amlodipine, HCTZ BPH --continue doxazosin FEN Fluids: PO intake adequate Electrolytes: replete as indicated Nutrition: low sodium DVT prophylaxis: on Xarelto Physical therapy Dispo: continues to require inpatient care. Full code. Lacey cell ; Isaiah Villarreal cell [phone]. Visit type - Emergency Visit Emergency Visit: Yes ED Registration Date: 09/19/18 Care time: The patient presented to the Emergency Department on the above date and was hospitalized for further evaluation of their emergent condition. - New Patient This patient is new to me today: No - Critical Care Critical Care patient: No
[2018-09-20 07:49] LABS: BASO % 0.1 % (0-2.0); HEMOGLOBIN 11.9 GM/dl (11.7-16.9); LYMPH % 10.1 % (8-40); MCH 32.5 pg (25.7-33.7); MCHC 33.1 g/dl (32.0-35.9); MEAN PLT VOLUME 10.9 fl (7.5-11.1); MONO % 6.7 % (3.8-10.2); NEUT % 83.1 % (42.8-82.8); PLATELET COUNT 135 K/MM3 (134-434); RBC 3.67 M/mm3 (4.00-5.60); RDW 12.5 % (11.9-15.9)
[2018-09-20 07:56] LABS: ALK PHOS 54 U/L (45-117); ANION GAP 6 MMOL/L (8-16); BILIRUBIN,TOTAL 1.2 mg/dl (0.2-1); BLOOD UREA NITROGEN 20 mg/dl (7-18); CALCIUM 8.6 mg/dl (8.5-10); CHLORIDE 106 mmol/L (98-107); CO2 24 mmol/L (21-32); CREATININE 0.6 mg/dl (0.55-1.3); GLUCOSE,RANDOM 133 mg/dl (74-106); POTASSIUM 3.6 mmol/L (3.5-5.1); SGOT/AST 37 U/L (15-37); SGPT/ALT 43 U/L (13-61); SODIUM 136 mmol/L (136-145); TOT PROT 5.7 g/dl (6.4-8.2)
[2018-09-20] MEDS ORDERED: MAGNESIUM SULF 50% (8.12 MEQ/2 ML-1 GM VIAL) IVPB ONE (09:22)
[2018-09-20] MEDS ORDERED: predniSONE 20 MG TABLET (UD) PO SCH (10:00)
[2018-09-20] MEDS ORDERED: MAGNESIUM 1GM/D5W - 1 GM/100 ML IVPB IVPB ONE (10:00)
[2018-09-20] MEDS: amLODIPine BESYLATE 10 MG TABLET (FP) PO SCH (10:01)
[2018-09-20] MEDS: LOSARTAN POTASSIUM 50 MG TABLET (FP) PO SCH (10:02)
[2018-09-20] MEDS: DOXAZOSIN MESYLATE 2 MG TABLET (FP) PO SCH (10:02)
[2018-09-20] MEDS ORDERED: POTASSIUM CHLORIDE TABS 20 MEQ TABLET.ER (FP) PO ONE (11:00)
[2018-09-20] MEDS: predniSONE 20 MG TABLET (UD) PO SCH ×2 (11:44→21:53)
--- NOTE | 2018-09-20 13:49 | PN ---
Progress Note, Physician History of Present Illness: Dizziness and gait disturbance resolving. Last saw Dr. Hughes 09/02/2018. - Current Medication List Current Medications: Active Medications Amlodipine Besylate (Norvasc -) 10 mg PO DAILY [facility] Last Admin: 09/20/18 10:01 Dose: 10 mg Atorvastatin Calcium (Lipitor -) 10 mg PO HS [facility] Last Admin: 09/19/18 21:12 Dose: 10 mg Doxazosin Mesylate (Cardura -) 2 mg PO DAILY [facility] Last Admin: 09/20/18 10:02 Dose: 2 mg Ezetimibe (Zetia -) 10 mg PO HS [facility] Last Admin: 09/19/18 21:12 Dose: 10 mg Levofloxacin (Levaquin 750 Mg Premixed Ivpb -) 750 mg in 150 mls @ 100 mls/hr IVPB DAILY [facility]; Protocol Last Admin: 09/20/18 10:02 Dose: 100 mls/hr Losartan Potassium (Cozaar -) 50 mg PO DAILY [facility] Last Admin: 09/20/18 10:02 Dose: 50 mg Prednisone (Deltasone -) 20 mg PO BID [facility] Stop: 09/20/18 22:01 Last Admin: 09/20/18 11:44 Dose: Not Given Rivaroxaban (Xarelto -) 20 mg PO HS [facility] Last Admin: 09/19/18 21:12 Dose: 20 mg - Objective Vital Signs: Vital Signs Temperature 98.6 F 09/20/18 10:00 Pulse Rate 55 L 09/20/18 10:00 Respiratory Rate 19 09/20/18 10:00 Blood Pressure 148/54 L 09/20/18 10:00 O2 Sat by Pulse Oximetry (%) 99 09/20/18 10:00 Constitutional: Yes: No Distress, Calm Cardiovascular: Yes: Pulse Irregular Respiratory: Yes: Regular, CTA Bilaterally Gastrointestinal: Yes: Normal Bowel Sounds, Soft Edema: No Labs: CBC, BMP 09/20/18 07:00 09/20/18 07:00 INR, PTT INR 1.37 (0.82-1.09) H 09/18/18 11:50 - ....Imaging MRI: Report Reviewed EKG: Report Reviewed (Afib @ 62 with PVC) Problem List - Problems (1) Acute arterial ischemic stroke, vertebrobasilar, cerebellar Code(s): I63.29 - CEREBRAL INFRC DUE TO UNSP OCCLS OR STENOSIS OF PRECERB ART (2) Chronic anticoagulation Code(s): Z79.01 - SKILLED NURSING (CURRENT) USE OF ANTICOAGULANTS (3) Atrial fibrillation with slow ventricular response Code(s): I48.91 - UNSPECIFIED ATRIAL FIBRILLATION (4) Dizziness Code(s): R42 - DIZZINESS AND GIDDINESS (5) HTN (hypertension) Code(s): I10 - ESSENTIAL (PRIMARY) HYPERTENSION Qualifiers: Hypertension type: essential hypertension Qualified Code(s): I10 - Essential (primary) hypertension (6) Hyperlipidemia Code(s): E78.5 - HYPERLIPIDEMIA, UNSPECIFIED Qualifiers: Hyperlipidemia type: pure hypercholesterolemia Qualified Code(s): E78.00 - Pure hypercholesterolemia, unspecified; E78.0 - Pure hypercholesterolemia (7) S/P CABG (coronary artery bypass graft) Code(s): Z95.1 - PRESENCE OF AORTOCORONARY BYPASS GRAFT (8) Carotid stenosis Code(s): I65.29 - OCCLUSION AND STENOSIS OF UNSPECIFIED CAROTID ARTERY Qualifiers: Laterality: left Qualified Code(s): I65.22 - Occlusion and stenosis of left carotid artery Assessment/Plan 09/20/2018 Brain MRI: Subacute nonhemorrhagic right cerebellar infarct 09/20/2018 Brain MRA: 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 Dizziness and gait disturbance referable to subacute nonhemorrhagic right cerebellar infarct and distal right vertebral artery stenosis 2. Atrial fibrillation with slow ventricular response (SSS) on Xarelto 3. HTN 4. Hyperlipidemia 5. LICA stenosis 6. CAD s/p CABG P:1. Continue Xarelto 20 qPM 2. Continue Norvasc 10 qd, Cardura 2 qhs, Vytorin 10/10 qd. Hyzaar 100/25 qd 3. F/u repeat echo, neuro f/u, distal vertebral artery stenosis is unideal for endovascular therapy 4. F/u with Dr. Barrington Hughes of [facility] upon d/c
--- NOTE | 2018-09-20 14:13 | ECHO ---
Name: ANGEL GERMAN Exam:Adult Echocardiogram Study Date: 09/20/2018 08:28 AM Age: 88 yrs Reason For Study: A-Fib Height: 69 in Weight: 170 lb BSA: 1.9 m2 MMode/2D Measurements & Calculations IVSd: 0.90 cm Ao root diam: 3.2 cm LVIDd: 5.8 cm LVIDs: 3.8 cm LVPWd: 0.75 cm EDV(Teich): 167.5 ml LVOT diam: 2.0 cm ESV(Teich): 61.4 ml Doppler Measurements & Calculations MV E max sujey: 172.6 cm/sec Ao V2 max: 148.0 cm/sec Ao max P.8 mmHg Ao V2 mean: 96.0 cm/sec Ao mean P.2 mmHg Ao V2 VTI: 35.0 cm ANNA(I,D): 2.1 cm2 ANNA(V,D): 2.5 cm2 LV V1 max P.9 mmHg MR max sujey: 594.6 cm/sec LV V1 mean P.8 mmHg MR max P.4 mmHg LV V1 max: 111.0 cm/sec LV V1 mean: 60.5 cm/sec LV V1 VTI: 22.3 cm SV(LVOT): 73.3 ml TR max sujey: 261.7 cm/sec TR max P.3 mmHg PI end-d sujey: 128.2 cm/sec Procedure A complete two-dimensional transthoracic echocardiogram was performed (2D, M-mode, Doppler and color flow Doppler). Left Ventricle The left ventricle is normal in size. Left ventricular systolic function is normal. Ejection Fraction = 60- 65%. No regional wall motion abnormalities noted. Right Ventricle The right ventricle is normal size. The right ventricular systolic function is normal. Atria The left atrium is mildly dilated. The right atrium is mildly dilated. Mitral Valve There is moderate mitral annular calcification. There is moderate to severe mitral regurgitation. Tricuspid Valve The tricuspid valve is normal in structure and function. There is moderate to severe tricuspid regurg itation. Pulmonary artery systolic pressure is at least 41 mmHg if RA pressure is assumed 3 mmHg. Aortic Valve There is mild aortic sclerosis.;. Mild aortic regurgitation. Pulmonic Valve The pulmonic valve is not well visualized. Moderate pulmonic valvular regurgitation. Great Vessels The aortic root is normal size. Pericardium/Pleura There is no pericardial effusion. Interpretation Summary The left ventricle is normal in size. Left ventricular systolic function is normal. No regional wall motion abnormalities noted. Ejection Fraction = 60-65%. The right ventricular systolic function is normal. The left atrium is mildly dilated. The right atrium is mildly dilated. There is moderate mitral annular calcification. There is moderate to severe mitral regurgitation. There is moderate to severe tricuspid regurgitation. Pulmonary artery systolic pressure is at least 41 mmHg if RA pressure is assumed 3 mmHg There is mild aortic sclerosis.; Mild aortic regurgitation. Moderate pulmonic valvular regurgitation. There is no pericardial effusion. Previous study is not available for comparison Boogie Gaytan MD 09/20/2018 02:13 PM
[2018-09-20] MEDS: EZETIMIBE 10 MG TABLET (FP) PO SCH (21:53)
[2018-09-20] MEDS: ATORVASTATIN CA 10 MG TABLET (FP) PO SCH (21:53)
[2018-09-20] MEDS: RIVAROXABAN 20 MG TABLET PO SCH (21:53)
[2018-09-21 06:06] VITALS: PULSE 72; TEMP 97.6
[2018-09-21 06:08] VITALS: BP 152/67
[2018-09-21] MEDS ORDERED: HYDROCHLOROTHIAZIDE 25 MG TABLET (FP) PO SCH (10:00)
[2018-09-21] MEDS: amLODIPine BESYLATE 10 MG TABLET (FP) PO SCH (10:01)
[2018-09-21] MEDS: DOXAZOSIN MESYLATE 2 MG TABLET (FP) PO SCH (10:01)
[2018-09-21] MEDS: LOSARTAN POTASSIUM 50 MG TABLET (FP) PO SCH (10:05)
--- NOTE | 2018-09-21 10:37 | DS ---
Physical Exam: SUBJECTIVE: Patient seen and examined at bedside. OBJECTIVE: Vital Signs Period Temp Pulse Resp BP Sys/Lockhart Pulse Ox Last 24 Hr 97.6 F-98.4 F 50-72 18-19 132-152/52-67 95-98 PHYSICAL EXAM GENERAL: Awake, alert, and fully oriented, in no acute distress. LUNGS: Breath sounds equal, clear to auscultation bilaterally. No wheezes, and no crackles. Rapid shallow breathing. HEART: Irregular, S1 and S2 ABDOMEN: Soft, nontender, not distended UPPER EXTREMITIES: 2+ pulses, warm, well-perfused. No cyanosis. No clubbing. No peripheral edema. LOWER EXTREMITIES: 2+ pulses, warm, well-perfused. No calf tenderness. No peripheral edema. NEUROLOGICAL: Cranial nerves II-XII intact. Normal speech. Tremulous. LABS CBCD WBC 12.0 K/mm3 (4.0-10.8) H 09/20/18 07:00 RBC 3.67 M/mm3 (4.00-5.60) L 09/20/18 07:00 Hgb 11.9 GM/dl (11.7-16.9) 09/20/18 07:00 Hct 36.0 % (35.4-49) 09/20/18 07:00 MCV 98.0 fl (80-96) H 09/20/18 07:00 MCHC 33.1 g/dl (32.0-35.9) 09/20/18 07:00 RDW 12.5 % (11.9-15.9) 09/20/18 07:00 Plt Count 135 K/MM3 (134-434) 09/20/18 07:00 MPV 10.9 fl (7.5-11.1) 09/20/18 07:00 CMP Sodium 136 mmol/L (136-145) 09/20/18 07:00 Potassium 3.6 mmol/L (3.5-5.1) 09/20/18 07:00 Chloride 106 mmol/L (98-107) 09/20/18 07:00 Carbon Dioxide 24 mmol/L (21-32) 09/20/18 07:00 Anion Gap 6 MMOL/L (8-16) L 09/20/18 07:00 BUN 20 mg/dl (7-18) H 09/20/18 07:00 Creatinine 0.6 mg/dl (0.55-1.3) 09/20/18 07:00 Creat Clearance w eGFR 127.45 (>60) 09/20/18 07:00 Calcium 8.6 mg/dl (8.5-10) 09/20/18 07:00 Total Bilirubin 1.2 mg/dl (0.2-1) H 09/20/18 07:00 AST 37 U/L (15-37) 09/20/18 07:00 ALT 43 U/L (13-61) 09/20/18 07:00 Alkaline Phosphatase 54 U/L (45-117) 09/20/18 07:00 Total Protein 5.7 g/dl (6.4-8.2) L 09/20/18 07:00 Albumin 3.0 g/dl (3.4-5.0) L 09/20/18 07:00 HOSPITAL COURSE: Date of Admission:09/19/18 Date of Discharge: 09/21/18 Pre hospital course 88 year-old male with a PMH significant for HTN, CAD s/p CABG x 5v, atrial fibrillation on Xarelto, systolic dysfunction, and recent sudden right hearing loss x 3 weeks. Patient has had a loose cough productive of whitish sputum x 2 weeks. He has had 1-2 diarrheal episodes x 2 days. He slept poorly last night due to coughing. He woke up this morning, ate his usual robust breakfast and went to move his car in the driveway. When he got out of the car he felt dizzy and he fell to the ground. He did not hit his head, no LOC. EMS was activated. As patient was being wheeled on stretcher from driveway to ambulance he vomited. About three weeks ago he had a sudden and profound loss of hearing in his right ear. He went to see ENT Dr. Mccarthy earlier this week who started him on a course of prednisone. Patient denies diplopia, speech change, facial numbness , focal numbness or weakness in the extremities, but he does feel generally weak. He denies chest pain, palpitations, diaphoresis, lower extremity edema. He denies fever, sweats, chills. On Xarelto but denies any type of bleeding episodes, no hematuria, melena, hematochezia, hematemesis. Denies ER course (1) T94.6; placed on Lesli hugger, improved to 97.2 (2) RR 26, afib @54bpm (3) K 3.1; Kdur 40meq x 1 Subsequent hospital course 88 year-old male with a PMH significant for HTN, CAD s/p CABG x 5v, systolic dysfunction, atrial fibrillation on Xarelto, and recent severe right hearing loss x 3 weeks. Admitted for dizziness and unsteady gait. 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 Barrington Hughes, [facility] --seen and evaluated today by Dr. Torrez Acute hearing loss right ear --seen and evaluated by ENT Dr. Mccarthy last week, was prescribed prednisone taper; taper was completed Systolic dysfunction --Echo 2013: LV low normal, mild septal wall hypokinesis --09/21 Echo: LV normal, EF 60-65%; RV normal; BLAE; moderate to severe MR; moderate to severe TR; pHTN; mild AI; moderate PI Coronary artery disease --continued amlodipine, Lipitor, Zetia Hypertension --continued losartan, amlodipine, HCTZ BPH --continued doxazosin Minutes to complete discharge: 35 Discharge Summary Reason For Visit: DIZZINESS Current Active Problems Acute arterial ischemic stroke, vertebrobasilar, cerebellar (Acute) Atrial fibrillation with slow ventricular response (Acute) BPH (benign prostatic hyperplasia) (Acute) Carotid stenosis (Acute) Chronic anticoagulation (Acute) Dizziness (Acute) HTN (hypertension) (Acute) Hyperlipidemia (Acute) Hypokalemia (Acute) Near syncope (Acute) S/P CABG (coronary artery bypass graft) (Acute) Condition: Improved - Instructions Diet, Activity, Other Instructions: During your hospital stay you completed the course of steroids Dr. Mccarthy started. You do not need any further prednisone. You should take a baby aspirin every day going forward. It is recommended you follow up with Dr. Barrington Hughes within one week of your discharge. Return to the emergency department for any new or worsening symptoms. Referrals: Barrington Hughes [Non Staff, Medical] - 1 Week Disposition: HOME - Home Medications Comprehensive Discharge Medication List: Ambulatory Orders FA/Mv,Ca,Iron,Min/Lycopene/Lut [Centrum Tablet] 1 each PO DAILY tablet Amlodipine Besylate [Norvasc -] 10 mg PO DAILY 07/11/13 Doxazosin Mesylate 2 mg PO DAILY 07/11/13 Ezetimibe/Simvastatin [Vytorin 10-10 mg Tablet] 1 each PO HS 07/11/13 Losartan/Hydrochlorothiazide [Losartan-Hctz 100-25 mg Tab] 1 each PO DAILY 07/11 Prednisone 30 mg PO DAILY 09/18/18 Rivaroxaban [Xarelto -] 20 mg PO HS 09/18/18 This patient is new to me today: No Emergency Visit: Yes ED Registration Date: 09/19/18 Care time: The patient presented to the Emergency Department on the above date and was hospitalized for further evaluation of their emergent condition. Critical Care patient: No - Discharge Referral Referred to [facility] No
[2018-09-21] MEDS ORDERED: ASPIRIN COATED 81 MG TABLET.EC PO SCH (11:00)
[2018-09-21] MEDS ORDERED: predniSONE 10 MG TABLET (UD) PO ONE (11:15)
== END 2018-09-21 13:50 | disposition home or self-care (01) | DRG 813 ==
LOC: FER 11:03 → INTOOBSV 14:14 → FM/S 14:14 → OBSVTOIN 09-19 13:04
PROVIDERS: ADMIT Internal Medicine; ATTEND Nurse Practitioner Acute Care
DX: D68.32 Hemorrhagic disorder due to extrinsic circulating anticoagulants (principal); I63.231 Cerebral infarction due to unspecified occlusion or stenosis of right carotid arteries; E87.2 Acidosis; I48.91 Unspecified atrial fibrillation; R42 Dizziness and giddiness; I10 Essential (primary) hypertension; E87.6 Hypokalemia; T68.XXXA Hypothermia, initial encounter; I25.10 Atherosclerotic heart disease of native coronary artery without angina pectoris; Z95.1 Presence of aortocoronary bypass graft; H91.8X1 Other specified hearing loss, right ear; N40.0 Benign prostatic hyperplasia without lower urinary tract symptoms; E78.5 Hyperlipidemia, unspecified; R55 Syncope and collapse; R00.1 Bradycardia, unspecified
CPT/HCPCS: 36415; 36600; 70450-TC; 70544-TC; 70551-TC; 71045-TC-FY; 80048; 80053; 81003; 81015; 82803; 83605; 83735; 83880; 84100; 84443; 84484; 85025; 85610; 85730; 87040; 87086; 93005; 93306-TC; 93880-TC; 93970-TC; 97116-GP; 97162-GP; 99285-25; G0378; J7030

== ENCOUNTER 2020-05-25 18:44 | Emergency (ER) | payer OTHER ==
[2020-05-25 18:51] VITALS: TEMP 97.9; BMI 22.0
[2020-05-25 20:02] LABS: HEMATOCRIT 38.4 % (35.4-49); HEMOGLOBIN 12.5 GM/dl (11.7-16.9); MCH 32.1 pg (25.7-33.7); MCHC 32.6 g/dl (32.0-35.9); MEAN CELL VOLUME 98.5 fl (80-96); MEAN PLT VOLUME 10.7 fl (7.5-11.1); PLATELET COUNT 138 K/MM3 (134-434); RDW 12.8 % (11.9-15.9); WHITE BLOOD COUNT 10.4 K/mm3 (4.0-10.8)
[2020-05-25 20:20] LABS: ALBUMIN 4.1 g/dl (3.4-5.0); BILIRUBIN,TOTAL 1.7 mg/dl (0.2-1); CALCIUM 9.1 mg/dl (8.5-10); CREATININE 0.6 mg/dl (0.55-1.3); POTASSIUM 3.5 mmol/L (3.5-5.1); TOT PROT 6.9 g/dl (6.4-8.2)
[2020-05-25 20:41] LABS: PLATELET ESTIMATE ADEQUATE
[2020-05-26] VITALS: BP 167/59; PULSE 79
== END 2020-05-26 00:21 | disposition home or self-care (01) ==
LOC: FER 18:44
DX: K40.91 Unilateral inguinal hernia, without obstruction or gangrene, recurrent (principal)
CPT/HCPCS: 36415; 71046-TC-FY; 74019-TC-FY; 74177-TC; 76705-TC; 80053; 81003; 81015; 82550; 83605; 83690; 84484; 85025; 93005; 99285-25; C9803; Q9967; U0003

== ENCOUNTER 2021-01-15 11:00 | Emergency (ER) | payer OTHER ==
[2021-01-15 11:10] VITALS: TEMP 98.5; BMI 21.2
[2021-01-15 12:23] LABS: BASO % 1.3 % (0-2.0); EOS % 1.4 % (0-4.5); HEMATOCRIT 33.8 % (35.4-49); HEMOGLOBIN 11.1 GM/dl (11.7-16.9); LYMPH % 16.3 % (8-40); MCH 32.5 pg (25.7-33.7); MCHC 32.9 g/dl (32.0-35.9); MEAN CELL VOLUME 98.7 fl (80-96); MEAN PLT VOLUME 10.1 fl (7.5-11.1); PLATELET COUNT 111 10^3/uL (134-434); RBC 3.43 M/mm3 (4.00-5.60); RDW 13.5 % (11.9-15.9); WHITE BLOOD COUNT 7.8 K/mm3 (4.0-10.8)
[2021-01-15 12:27] LABS: ALBUMIN 3.8 g/dl (3.4-5.0); CALCIUM 8.6 mg/dl (8.5-10); CREATININE 0.5 mg/dl (0.55-1.3); TOT PROT 6.7 g/dl (6.4-8.2)
[2021-01-15] MEDS ORDERED: CLINDAMYCIN 600MG PREMIX IVPB 600 MG/50 ML BAG IVPB ONE (12:30)
[2021-01-15] MEDS ORDERED: CLINDAMYCIN PHOSPHATE 600 MG/4 ML VIAL ONE (12:33)
[2021-01-15 13:46] VITALS: BP 145/76; PULSE 61
== END 2021-01-15 13:45 | disposition home or self-care (01) ==
LOC: FER 11:00
PROC: 0H9LXZZ Drainage of Left Lower Leg Skin, External Approach (ICD-10-PCS; principal; 2021-01-15)
PROC: 3E03329 Introduction of Other Anti-infective into Peripheral Vein, Percutaneous Approach (ICD-10-PCS; 2021-01-15)
DX: L03.116 Cellulitis of left lower limb (principal)
CPT/HCPCS: 10060; 36415; 80053; 85025; 96374; 99284-25

== ENCOUNTER 2021-01-17 10:02 | Emergency (ER) | payer OTHER ==
[2021-01-17 10:07] VITALS: BP 145/81; PULSE 65; TEMP 97.8; BMI 21.2
== END 2021-01-17 10:51 | disposition home or self-care (01) ==
LOC: FER 10:02
DX: Z48.00 Encounter for change or removal of nonsurgical wound dressing (principal)
CPT/HCPCS: 99283-25; 99285-25